=== PATIENT | male | born 1985 | race Caucasian/White ===

== ENCOUNTER 2018-09-07 13:17 | Emergency (ER) | payer OTHER ==
[2018-09-07 13:31] VITALS: BP 145/95
--- NOTE | 2018-09-07 13:45 | ED Physician Documentation ---
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 who was working at home with a saw and took a little chunk out of the tuft of the left thumb at home just prior to arrival.) Review of Systems Constitutional: reports: Reviewed and negative Throat: reports: Reviewed and negative Cardiac: reports: Reviewed and negative Respiratory: reports: Reviewed and negative PD PAST MEDICAL HISTORY - Present Medications Home Medications: Ambulatory Orders Medication Instructions Recorded Confirmed No Known Home Medications 09/07/18 09/07/18 - Allergies Allergies/Adverse Reactions: Allergies Allergy/AdvReac Type Severity Reaction Status Date / Time No Known Drug Allergies Allergy Verified 09/07/18 13:31 PD ED PE NORMAL - Vitals Vital signs reviewed: Yes - General General: Alert and oriented X 3, No acute distress - Extremities Extremities: Other (In the pulp of the left thumb there is a shallow 5 mm x 2 mm tissue defect that is a little too gaping to suture.) - Neuro Neuro: Alert and oriented X 3, Normal speech Results - Vitals Vitals: Vital Signs - 24 hr 09/07/18 13:27 Temperature 36.6 C Heart Rate 96 Respiratory 16 Rate Blood Pressure 145/95 H O2 Saturation 97 Oxygen O2 Source Room air Departure - Departure Disposition: 01 Home, Self Care Clinical Impression: Soft tissue avulsion Condition: Good Record reviewed to determine appropriate education?: Yes Instructions: ED Wound Care Comments: Remove the dressing once a day and you can wash it briefly with soap and water and then dressed it with either Xeroform or bacitracin with a nonstick dressing and a wrap that is not too tight. You will need to do this daily for about a week and 1/2 to 2 weeks before it is fully healed. Your blood pressure was elevated today on check into the emergency department. This does not mean that you have hypertension, it is a common phenomenon to come to the emergency department and have elevated blood pressure. I recommend that you see your primary care physician within the week to have it rechecked when you are feeling better.
== END 2018-09-07 13:54 | disposition home or self-care (01) ==
LOC: ED 13:17
DX: S61.012A Laceration without foreign body of left thumb without damage to nail, initial encounter (principal); W27.0XXA Contact with workbench tool, initial encounter; Y93.89 Activity, other specified; Y92.009 Unspecified place in unspecified non-institutional (private) residence as the place of occurrence of the external cause; R03.0 Elevated blood-pressure reading, without diagnosis of hypertension
CPT/HCPCS: 99283